=== PATIENT | female | born 1960 | race Caucasian/White ===

== ENCOUNTER → 2016-08-17 | Day surgery (SDC) | payer OTHER ==
[~2016-08-17] VITALS: Ht 157.5 cm; Wt 54.4 kg
[~2016-08-17] MED LIST: ARIMIDEX1 M1 PO; PLAQUENIL200 M1 PO; TAMOXIFEN CITRA20 MG PO
--- NOTE | 2016-08-17 08:51 | Operative Report ---
Operative/Inv Procedure Report Surgery Date: 08/17/16 Name of Procedure: Hysteroscopy dilation and curettage Pre-Operative Diagnosis: Thickened endometrium Fluids in endometrial cavity History of breast cancer Post-Operative Diagnosis: Same Estimated Blood Loss: less than 50ml Surgeon/Senior Manager Asset Protection: KIM[address] MD Anesthesia: iv SEDATION IV Fluids: Lactated Ringer's Urine Output: straight cath 50 mL clear urine at the beginning of the procedure Specimens: [facility] Complications: None Condition: Stable Operative Indication: 56-year-old, history of breast cancer, ultrasound showed endometrial fluid collection, thickened endometrium Operative/Procedure Note Note: The patient was taken to the operating room where IV sedation anesthesia was was obtained without difficulty. The patient was then examined under anesthesia and found to be have a anteverted uterus with normal adnexa. She was then placed in the dorsal lithotomy position and prepared and draped in the usual sterile fashion. A straight cath was used to empty bladder. A bivalve speculum was then placed in the patient's vagina and the anterior lip of the cervix grasped with the single-toothed tenaculum. Uterus was sounded to 8.5 cm, cervix was dilated to accommodate a diagnostic hysteroscope, hysteroscope was inserted into the uterine cavity, a small polyp was seen in the anterior uterine wall . Hysteroscope was withdrawn from the uterine cavity, a sharp curette was done until the gritty texture was obtained. Specimen sent for pathology. All instruments were withdrawn from the patient's vagina, Monsel solution was used to obtain excellent hemostasis of the cervix. Patient tolerated the procedure well. All the instruments laps counts were correct, patient was taken to the recovery room in stable condition Findings: Anteverted uterus, sounded to 8.5 cm, small endometrial polyp seen at anterior uterine wall
== END ==
LOC: STS 01:34
DX: R93.8 Abnormal findings on diagnostic imaging of other specified body structures (principal); N95.0 Postmenopausal bleeding; N84.0 Polyp of corpus uteri; N85.4 Malposition of uterus; Z85.3 Personal history of malignant neoplasm of breast; M32.9 Systemic lupus erythematosus, unspecified
CPT/HCPCS: 81025; 88305; J0131; J2250